=== PATIENT | male | born 1955 | race Asian ===

== ENCOUNTER 2018-10-30 19:16 | Emergency (ER) | payer OTHER, MEDICAID ==
[~2018-10-30] VITALS: Ht 170.2 cm; Wt 83.5 kg
[2018-10-30 19:30] VITALS: Ht 170.2 cm; Wt 83.5 kg
[2018-10-30 20:35] LABS: BASOPHIL % 0.4 % (0-2); PLATELET COUNT 206 x10^3mcL (130-400)
[2018-10-30 20:43] LABS: CALCIUM 9.2 mg/dL (8.5-10.1); CARBON DIOXIDE 25.3 mmol/L (21-32); CHLORIDE SERUM 99 mmol/L (98-107); CREATININE SERUM 1.2 mg/dL (0.7-1.3); GFR1 > 60 mL/min; GLUCOSE SERUM 161 mg/dL (74-106); POTASSIUM SERUM 3.6 mmol/L (3.5-5.1); SODIUM SERUM 130 mmol/L (136-145)
[2018-10-30 20:47] LABS: ALBUMIN 3.6 g/dL (3.4-5.0); ALKALINE PHOSPHATASE 191 U/L (46-116); ALT/SGPT 112 U/L (16-63); AST/SGOT 76 U/L (15-37); BILIRUBIN TOTAL 0.41 mg/dL (0.20-1.00)
[2018-10-30 20:49] LABS: TOTAL PROTEIN, SERUM 8.7 g/dL (6.4-8.2)
[2018-10-31 01:34] VITALS: BP 107/70
== END 2018-10-31 01:34 | disposition short-term general hospital (02) ==
LOC: ED 19:16
PROVIDERS: Emergency Medicine
DX: J18.9 Pneumonia, unspecified organism (principal)
CPT/HCPCS: 36600; 87804; J0456; J0696; J2270; J7030; J7050; Q0092